=== PATIENT | female | born 1980 | race Asian ===

== ENCOUNTER 2017-01-27 00:50 | Emergency (ER) | payer BC ==
[~2017-01-27] VITALS: Ht 157.5 cm; Wt 52.2 kg
--- NOTE | 2017-01-27 02:10 | NUR ---
Patient discharged to home in stable conditon. Written and verbal after care instructions given. Patient verbalizes understanding of instructions.
== END 2017-01-27 02:08 | disposition home or self-care (01) ==
LOC: ER 01:01
DX: S00.83XA Contusion of other part of head, initial encounter (principal); R51 Headache; V89.2XXA Person injured in unspecified motor-vehicle accident, traffic, initial encounter; Y93.89 Activity, other specified; Y92.89 Other specified places as the place of occurrence of the external cause; Y99.8 Other external cause status
CPT/HCPCS: 70450; A4663